=== PATIENT | female | born 1985 | race Caucasian/White ===

== ENCOUNTER → 2019-07-03 10:45 | Outpatient (CLI) | payer OTHER, SELFPAY ==
--- NOTE | ~2019-07-03 | US_ITS ---
EXAMINATION: US abdomen complete DATE: 07/03/2019 11:30 INDICATION: Generalized abdominal pain TECHNIQUE: Multiple grayscale and Doppler ultrasound images of the abdomen were obtained. COMPARISON: None available FINDINGS: The head, body, and tail of the pancreas are normal. The liver is normal with normal echog enicity and echotexture. No surface nodularity. Normal hepatopetal flow in the main portal vein. The gallbladder is normal with no abnormal wall thickening, pericholecystic fluid or stones. The normal c ommon bile duct measures 3 mm. There was no sonographic Zhang sign. The visualized portions of the a jennifer and inferior vena cava are normal. The right kidney measures 10.3 x 2.3 x 5.3 cm. The left kidney measures 9.7 x 4.4 x 3.6 cm. The kidne ys demonstrate normal parenchymal echogenicity. There is no hydronephrosis. The spleen measures 8.6 c m and demonstrates multiple echogenic foci, consistent with healed granulomatous disease of the splee n. IMPRESSION: 1. No sonographic correlate for the patient's symptoms. Reviewed, dictated and finalized at location A. MAN
== END ==
PROVIDERS: PCP Family Medicine; Visit Provider Family Medicine
DX: R10.12 Left upper quadrant pain (principal); R10.11 Right upper quadrant pain
CPT/HCPCS: 76700

== ENCOUNTER 2020-09-08 10:00 | Day surgery (SDC) | payer OTHER, SELFPAY ==
[2020-09-08] VITALS (11 sets, daily range): BP systolic 97–118; BP diastolic 49–76; PULSE 56–100; RESP 14–19; TEMP 36.7–37.2; O2SAT 100
--- NOTE | ~2020-09-08 | CT_ITS ---
EXAMINATION: CT abdomen pelvis w con EXAM DATE: 09/08/2020 12:23 INDICATION: RLQ pain. TECHNIQUE: Spiral CT of the abdomen and pelvis was performed following intravenous injection of 100 m L Omnipaque 350. Axial, coronal and sagittal images were reviewed. The dose-length product (DLP) fo r this examination was 171.28 mGy-cm. The exposure was tailored according to patient size (auto mA e xposure control), and iterative reconstruction (ASIR) was used as additional dose reduction technique . There is no prior study for comparison. FINDINGS: Probable identification of the retrocecal appendix, origin appears normal in caliber but th e tip is dilated up to about 7 mm, with adjacent inflammation, small amount of adjacent fluid but no organized abscess. Most likely acute tip appendicitis. Finding indicated on axial image 81. The liver, spleen, adrenal glands and pancreas are unremarkable. Gallbladder is unremarkable. No bi liary obstruction. Portal and splenic veins are patent. Kidneys enhance symmetrically. There is no hydronephrosis. There is IUD which appears to be centrally located within the endometrium, expecte d position. The bladder is unremarkable. There is no retroperitoneal or pelvic lymphadenopathy. The stomach and small bowel are unremarkable. There is expected amount of colonic stool. No free i ntraperitoneal gas. The heart is normal in size. There are no pericardial or pleural effusions. T he lung bases are unremarkable. There are no osteoblastic or osteolytic lesions identified. IMPRESSION: 1. Findings suspicious for acute tip appendicitis. Reviewed, dictated and finalized at location A.
[2020-09-08 10:18] LABS: Basophils Percent Auto 0.3 % (0.2-1.2); Eosinophils Absolute Auto 0.1 K/mm3 (0-0.3); Eosinophils Percent Auto 2.1 % (0-4.4); Hematocrit 42.5 % (37.0-47.0); Immature Granulocyte Absolute 0.01 K/mm3 (0.00-0.031); Immature Granulocyte Percent A 0.2 % (0-0.5); Lymphocytes Absolute Auto 2.42 K/mm3 (0.9-3.2); Lymphocytes Percent Auto 36.6 % (18.3-44.2); Mean Corpuscular HGB Conc 32.9 g/dl (32-36); Mean Corpuscular Hemoglobin 28.6 pg (26-34); Mean Corpuscular Volume 86.9 fl (80-100); Mean Platelet Volume 10.6 fl (7.4-10.4); Monocytes Absolute Auto 0.6 K/mm3 (0.1-0.6); Monocytes Percent Auto 9.1 % (2.6-8.5); Neutrophils Absolute Auto 3.4 K/mm3 (1.3-6.7); Neutrophils Percent Auto 51.7 % (45.5-73.1); Platelet Count Result 292 k/mm3 (150-375); Red Blood Count 4.89 M/mm3 (4.2-5.4); Red Cell Distribution Width 12.6 % (11.5-14.5); White Blood Count 6.6 K/mm3 (4.5-10.0)
[2020-09-08 10:30] LABS: Alanine Aminotransferase 18 U/L (4-35); Albumin Level 4.7 g/dL (3.5-5.1); Alkaline Phosphatase 67 U/L (38-126); Anion Gap 7 mmol/L (8-16); Aspartate Amino Transferase 33 U/L (14-36); Bilirubin,Total 0.6 mg/dL (0.2-1.3); Blood Urea Nitrogen 11 mg/dL (7-17); Carbon Dioxide 28 mmol/L (22-30); Chloride 105 mmol/L (98-107); Estimated CRCL calculation 79 ml/min; Estimated Glomerular Filt Rate > 60; Glucose 95 mg/dL (65-105); Lipase 73 U/L (23-300); Potassium 3.8 mmol/L (3.4-5.0); Sodium 140 mmol/L (137-145)
[2020-09-08 10:36] LABS: Add Urine Microscopic? YES; Appearance Urine Cloudy (Clear); Bacteria Urine Trace /hpf; Bilirubin Urine Negative (Negative); Blood Urine Negative (Negative); Color Urine Yellow (Yellow); Glucose Urine UA Negative (Negative); Ketones Urine Negative (Negative); Leukocyte Esterase Ur Negative LEU/UL (Negative); Mucus Urine Heavy /lpf; Nitrate Urine Negative (Negative); Protein Urine 2+ mg/dL (Negative); Specific Grav Ur 1.025 (1.001-1.035); Squamous Epithelial Cell Urine Few /hpf (Few); Urobilinogen Urine Negative mg/dL (<2.0); WBC Urine 0-3 /hpf
--- NOTE | 2020-09-08 12:31 | ED.ABDPAIN ---
HPI - Abdominal Pain General Chief Complaint: Abdominal Pain Stated Complaint: abd pain Time Seen by Provider: 09/08/20 11:30 History of Present Illness HPI narrative: Patient is a 34-year-old female who presents to the ER with abdominal pain. Ongoing for last 4 to 5 days. Began epigastrium is very uncomfortable. She tried taking some antacids for relief. She reports the pain has started moving down his right lower quadrant and she is concerned about appendicitis. She reports she is felt slightly constipated. No fevers or chills or sweats. No nausea or vomiting. Has not had similar issues in the past. Related Data Home Medications Medication Instructions Recorded Confirmed No Home Medications 09/08/20 09/08/20 Allergies Allergy/AdvReac Type Severity Reaction Status Date / Time latex Allergy Rash Verified 09/08/20 12:15 Review of Systems Review of Systems: All systems reviewed & are unremarkable except as noted in HPI and below Constitutional: Constitutional: Denies chills, Denies fever(s) and Denies weakness ENT: Denies nasal congestion and Denies sore throat Cardiovascular: Cardiovascular: Denies chest pain, Denies rapid heart rate and Denies radiating jaw, neck or arm pain Respiratory: Respiratory: Denies cough and Denies dyspnea Gastrointestinal: Gastrointestinal: Reports abdominal pain, Reports constipation, Denies nausea and Denies vomiting PMFSH Past Medical History Medical History (Updated 09/08/20 @ 13:49 by Kervin Pinto MD) Healthy female adult Surgical History Surgical History (Updated 09/08/20 @ 12:42 by Kervin Pinto MD) No history of previous surgery Social History Social History (Updated 09/08/20 @ 12:42 by Kervin Pinto MD) Smoking status: Never smoker Exam Narrative: Exam Narrative: GENERAL: Well-appearing, well-nourished, and in no acute distress. HEAD: Normocephalic, atraumatic. ENT: Mucous membranes moist. CHEST: Clear to auscultation. No respiratory distress. HEART: Regular rate and rhythm. Normal peripheral pulses. ABDOMEN: Soft, tender palpation right lower quadrant without guarding, nondistended. EXTREMITIES: Normal range of motion. No edema. SKIN: Warm, dry, no rash. NEURO: Alert and oriented x3. PSYCH: Normal mood and affect. Course Reevaluation(s) Reevaluation #1: Will contact general surgery about appendicitis. Patient had a small breakfast of a bar about an hour ago and has been sipping on some soda while in the ER. Date: 09/08/20 Time: 12:30 Reevaluation #2: Dr. Fernández will come and see the patient and discuss whether operative procedure versus outpatient antibiotics for best treatment course for her. Date: 09/08/20 Time: 12:45 Vital Signs Vital signs: Vital Signs Temperature 98.0 F 09/08/20 10:04 Pulse Rate 100 09/08/20 10:04 Respiratory Rate 18 09/08/20 10:04 Blood Pressure 114/74 09/08/20 10:04 Pulse Oximetry 100 09/08/20 10:04 Temperature 98.0 F 09/08/20 10:04 Pulse Rate 76 09/08/20 12:13 Respiratory Rate 18 09/08/20 12:13 Blood Pressure 103/68 09/08/20 12:13 Pulse Oximetry 100 09/08/20 12:13 MDM - Abdominal Pain Lab Data Result diagrams: 09/08/20 10:09 09/08/20 10:09 Labs: Lab Results 09/08/20 09/08/20 09/08/20 Range/Units 10:09 10:09 10:23 WBC 6.6 (4.5-10.0) K/mm3 RBC 4.89 (4.2-5.4) M/mm3 Hgb 14.0 (12.0-15.0) g/dL Hct 42.5 (37.0-47.0) % MCV 86.9 (80-100) fl MCH 28.6 (26-34) pg MCHC 32.9 (32-36) g/dl RDW 12.6 (11.5-14.5) % Plt Count 292 (150-375) k/mm3 MPV 10.6 H (7.4-10.4) fl Immature Gran % (Auto) 0.2 (0-0.5) % Neut % (Auto) 51.7 (45.5-73.1) % Lymph % (Auto) 36.6 (18.3-44.2) % [place] % (Auto) 9.1 H (2.6-8.5) % Eos % (Auto) 2.1 (0-4.4) % Baso % (Auto) 0.3 (0.2-1.2) % Lymph # (Auto) 2.42 (0.9-3.2) K/mm3 [place] # (Auto) 0.6 (0.1-0.6) K/mm3 Eos # (Auto) 0
[2020-09-08] MEDS: ERTAPENEM 1 GM/NS 50 ML 1 GM/50 ML BAG IVPB (12:41)
--- NOTE | 2020-09-08 12:45 | PC.NURSE ---
Pt states she ate a granola bar and drank approx a cup of soda around 1000
--- NOTE | 2020-09-08 14:25 | PM.IMHP ---
H&P: HPI History of Present Illness Date/Time: 09/08/20 14:25 Chief Complaint: Right lower quadrant pain Narrative: this is a 34-year-old woman who presented to the emergency department with abdominal pain that started 5 days ago. She states that this started out as vague abdominal pain but over the past couple days this has localized to the right lower quadrant. She did have a couple bowel movements that appeared to have blood mixed in with the stool, but this has happened before. She had a colonoscopy within the past year which she states was negative. She denies any fevers or any other abdominal complaints going along with this. She has never had any pain like this past. Review of Systems Review of Systems: All systems reviewed & are unremarkable except as noted in HPI and below Eyes: Eyes: Denies change in vision ENT: Denies hearing loss, Denies neck pain and Denies sore throat Cardiovascular: Cardiovascular: Denies chest pain and Denies dyspnea Respiratory: Respiratory: Denies cough, Denies dyspnea and Denies wheezing Gastrointestinal: Gastrointestinal: Reports as per HPI Genitourinary: Genitourinary: Denies hematuria and Denies dysuria Musculoskeletal: Musculoskeletal: Denies arthralgias, Denies joint swelling and Denies neck pain Allergic/Immunologic: Allergic/Immunologic: Denies wheezing PMFSH Past Medical History Medical History Healthy female adult Surgical History Surgical History No history of previous surgery Social History Social History Smoking status: Never smoker Meds Home Medications and Allergies Home Medications Medication Instructions Recorded Confirmed Type No Home Medications 09/08/20 09/08/20 History Allergies Allergy/AdvReac Type Severity Reaction Status Date / Time latex Allergy Rash Verified 09/08/20 12:15 Vital Signs Vital Signs - 24 hr 09/08/20 10:04 09/08/20 12:13 09/08/20 14:20 Temperature 36.7 C Pulse Rate 100 76 61 Respiratory Rate 18 18 18 Blood Pressure 114/74 103/68 110/76 Pulse Oximetry 100 100 100 Exam Const: General: alert; No acute distress Orientation/consciousness: patient oriented x3 Limitations: no limitations HENMT: Head: normocephalic and atraumatic Ears: hearing grossly normal bilaterally General nose exam: Normal external nose present and Normal nares present Mouth: Yes Normal oral and palatal mucosa present and Yes moist mucous membranes Eyes: General: appearance normal, both eyes and all related structures Conjunctivae: conjunctivae normal Sclera: sclerae normal Pupils: Equal, round and reactive pupils present EOM: EOMs intact bilaterally Neck: Neck: normal visual inspection, full ROM, no lymphadenopathy, supple and no JVD Lymphatic: no lymphadenopathy noted Chest: Chest palpation & inspection: normal inspection of the chest Resp: Effort & Inspection: normal respiratory effort and able to speak in complete sentences Auscultation: clear to auscultation bilaterally Percussion: percussion normal Cardio: Jugular venous distension: no JVD Rate: regular rate Rhythm: regular rhythm Heart sounds: S1 normal heart sound present and S2 normal heart sound present Peripheral pulses: Peripheral pulses 2+ throughout GI: Inspection: normal to inspection GI Palp: Yes abdominal tenderness, Yes Soft to palpation, Yes Tenderness to palpation present (GI) ( Right lower quadrant), No Guarding due to palpation present (GI), No Hernia present and No Rebound tenderness present Percussion: Yes normal to percussion Auscultation: normal bowel sounds : General: Yes no CVA tenderness Back/Spine/Pelvis: Back: no CVA tenderness Skin: General skin exam: normal color and dry skin Neuro: General: patient oriented x3, gait normal, moves all extremities, no focal christina
--- NOTE | 2020-09-08 14:30 | WPDHPUPDATE1 ---
History and Physical Update Update Date/Time: 09/08/20 14:30 History and Physical has been reviewed, including an updated exam of the patient. There are NO changes in the patient's condition. Risks, benefits, and alternatives have been discussed and questions answered. Patient agrees to proceed with procedure.
[2020-09-08] MEDS: LACTATED RINGERS 1,000 ML 30 ML IV CONT ×2 (15:04→17:05)
[2020-09-08] MEDS: KETOROLAC 15 MG/ML VIAL (*BKC) IV PUSH (15:24)
--- NOTE | 2020-09-08 15:31 | WPDANESEPPF ---
Anes - Initial Pre Proc Eval Procedure: Operation Date: 09/08/20 16:15 Proposed Procedures p Laparoscopic Appendectomy - John Fernández DO Date/Time: 09/08/20 15:31 Surgeon: John Fernández DO Pre Op Diagnosis: abd pain Patient Data Age: 34 Gender: F Height: 5 ft 4 in Weight: 50.8 kg Last Vital Signs Temp 37.2 C 09/08/20 14:25 Pulse 63 09/08/20 14:25 Resp 16 09/08/20 14:25 BP 97/61 L 09/08/20 14:25 Pulse Ox 100 09/08/20 14:25 Allergies Allergy/AdvReac Type Severity Reaction Status Date / Time latex Allergy Intermediate Rash Verified 09/08/20 14:53 gluten AdvReac Intermediate Gastrointestinal Verified 09/08/20 14:54 Upset codeine AdvReac Mild Nausea Verified 09/08/20 14:53 Home Medications Medication Instructions Recorded Confirmed Type No Home Medications 09/08/20 09/08/20 History Laboratory Tests 09/08/20 09/08/20 09/08/20 10:09 10:09 10:23 WBC 6.6 K/mm3 K/mm3 (4.5-10.0) RBC 4.89 M/mm3 M/mm3 (4.2-5.4) Hgb 14.0 g/dL g/dL (12.0-15.0) Hct 42.5 % % (37.0-47.0) MCV 86.9 fl fl (80-100) MCH 28.6 pg pg (26-34) MCHC 32.9 g/dl g/dl (32-36) RDW 12.6 % % (11.5-14.5) Plt Count 292 k/mm3 k/mm3 (150-375) MPV 10.6 fl H fl (7.4-10.4) Immature Gran % (Auto) 0.2 % % (0-0.5) Neut % (Auto) 51.7 % % (45.5-73.1) Lymph % (Auto) 36.6 % % (18.3-44.2) [place] % (Auto) 9.1 % H % (2.6-8.5) Eos % (Auto) 2.1 % % (0-4.4) Baso % (Auto) 0.3 % % (0.2-1.2) Lymph # (Auto) 2.42 K/mm3 K/mm3 (0.9-3.2) [place] # (Auto) 0.6 K/mm3 K/mm3 (0.1-0.6) Eos # (Auto) 0.1 K/mm3 K/mm3 (0-0.3) Baso # (Auto) 0.0 K/mm3 K/mm3 (0.0-0.1) Abs Immat Gran (auto) 0.01 K/mm3 K/mm3 (0.00-0.031) Absolute Neuts (auto) 3.4 K/mm3 K/mm3 (1.3-6.7) Absolute Nucleated RBC 0.0 K/mm3 K/mm3 (0.0-0.012) Nucleated RBC % 0.0 % % (0.0-0.2) Sodium 140 mmol/L mmol/L (137-145) Potassium 3.8 mmol/L mmol/L (3.4-5.0) Chloride 105 mmol/L mmol/L (98-107) Carbon Dioxide 28 mmol/L mmol/L (22-30) Anion Gap 7 mmol/L L mmol/L (8-16) BUN 11 mg/dL mg/dL (7-17) Creatinine 0.70 mg/dL mg/dL (0.7-1.0) Estim Creat Clear Calc 79 ml/min ml/min Estimated GFR > 60 (59 - ) Glucose 95 mg/dL mg/dL (65-105) Calcium 9.0 mg/dL mg/dL (8.4-10.2) Total Bilirubin 0.6 mg/dL mg/dL (0.2-1.3) AST 33 U/L U/L (14-36) ALT 18 U/L U/L (4-35) Alkaline Phosphatase 67 U/L U/L (38-126) Total Protein 8.0 g/dL g/dL (6.3-8.2) Albumin 4.7 g/dL g/dL (3.5-5.1) Lipase 73 U/L U/L (23-300) Urine Color Yellow (Yellow) Urine Appearance Cloudy H (Clear) Urine pH 5.0 (5.0-9.0) Ur Specific [place] 1.025 (1.001-1.035) Urine Protein 2+ mg/dL H mg/dL (Negative) Urine Glucose (UA) Negative mg/dL mg/dL (Negative) Urine Ketones Negative mg/dL mg/dL (Negative) Ur Blood (Man) Negative (Negative) Urine Nitrate Negative (Negative) Urine Bilirubin Negative (Negative) Urine Urobilinogen Negative mg/dL mg/dL (<2.0) Leukocyte Esterase Rfl Negative DIANA/UL DIANA/UL (Negative) Urine RBC 3-5 /hpf H /hpf (0-2) Urine WBC 0-3 /hpf /hpf Ur Squamous Epith Cells Few /hpf /hpf (Few) Urine Bacteria Trace /hpf /hpf Urine Mucus Heavy /lpf H /lpf Patient hx anesthesia problems: none Family hx anesthesia problems: none PMFSH Past Medical History Medical History (Updated 09/08/20 @ 15:35 by Bryan Mcclelland MD) Anxiety Healthy fema
[2020-09-08] MEDS: BUPIVACAINE/EPINEPHRINE 0.5% 30 ML VIAL INFILTRATE (16:37)
--- NOTE | 2020-09-08 17:09 | PM.PROC ---
Procedure Note - Detailed Date of procedure: 09/08/20 Pre-op diagnosis: Acute appendicitis Post-op diagnosis: same Procedure performed: Laparoscopic Appendectomy Description of procedure: Procedure as well as risks, benefits, and alternatives were explained to the patient. The patient agreed to proceed. Written consent was obtained and placed in chart prior to procedure. The patient was brought back to surgical suite. She was placed supine on operating table. Time-out was done to confirm the patient and procedure. The patient was then intubated by the Anesthesia Department. Her abdomen was prepped and draped in sterile fashion using chlorhexidine prep. A 12 mm incision was made at the inferior portion of the umbilicus. Blunt dissection was carried out down to the linea alba. The linea alba was then incised using a 15 blade scalpel. Then bluntly entered into the peritoneal cavity. A 12 mm trocar was then inserted, and carbon dioxide insufflation was used to create a pneumoperitoneum. The camera was inserted and the abdomen was inspected. No immediate abnormalities were identified. The patient was then placed in slight Trendelenburg position and rotated to the left. A 5 mm incision was made in the suprapubic region in midline and a 5 mm trocar was inserted under direct visualization. A 5 mm incision was made in the left lower quadrant and a 5 mm trocar was inserted under direct visualization. The right lower quadrant was carefully inspected. The cecum was identified and then this was traced back to the appendix. The appendix was identified and grasped at the mesoappendix and lifted anteriorly. Careful blunt dissection was carried out at the base of the appendix through the mesoappendix using a [place] grasper. An Endo-CLINT 45 mm blue load stapler was then advanced across the base of the appendix and clamped and fired. A white reload was then clamped across the mesoappendix and fired. This freed up our appendix completely. It was then placed in an EndoCatch bag and removed through the left lower quadrant port. The staple lines were then inspected. Hemostasis appeared adequate and the staple lines appeared secure. The area was then irrigated with sterile saline. The pelvis was then carefully inspected and irrigated with sterile saline as well and the remainder of the abdomen was carefully inspected. The patient was then flattened out in bed. One final inspection was made around the abdominal cavity and no other abnormalities were seen. The ports were then removed under direct visualization. The camera was removed and the pneumoperitoneum was released. The fascia of the umbilical incision was reapproximated using an 0 Vicryl [id number] suture. 0.5% bupivacaine with epinephrine was infiltrated locally around each of the incisions. The skin of the incisions was then approximated using 4-0 Monocryl subcuticular suture and Exofin glue was applied on top. The patient was then awakened from anesthesia, extubated, and transferred to Recovery. Anesthesia: GETA and local (0.5% bupivicaine with epi) Surgeon: John Fernández DO Estimated blood loss (mL): 5 Pathology: yes (Appendix) Complications: No immediate complications Condition: stable Disposition: same day Findings: This is a 34-year-old woman who presented with right lower quadrant pain for the past 5 days. Her pain was very dry oral and generalized across her lower abdomen for the 1st several days, but then it eventually localized to the right lower quadrant. She has never experienced symptoms like this before. CT in the emergency department showed evidence of early acute appendicitis and she had tenderness on palpation in the right lower quadrant. Discussions were made with the patient about treatment options and decision was made to proceed with laparoscopic appendectomy, possible open. Laparoscopic appendectomy was performed. The appendix was in a retrocecal location and at the dis
[2020-09-08] MEDS: ONDANSETRON INJ 4 MG/2 ML VIAL IV PUSH (17:26)
[2020-09-08] MEDS: fentaNYL CITRATE INJ (*CRX) 100 MCG/2 ML VIAL 25 MCG IV PUSH ×3 (17:26→17:45)
== END 2020-09-08 19:10 | disposition home or self-care (01) ==
LOC: ANHED 13:49 → ANHSURGERY 14:16
PROVIDERS: Emergency Provider Emergency Medicine; PCP Nurse Practitioner Family; Visit Provider Surgery
PROC: 0DTJ4ZZ Resection of Appendix, Percutaneous Endoscopic Approach (ICD-10-PCS; CPT 44970; principal; 2020-09-08 16:15)
DX: K35.890 Other acute appendicitis without perforation or gangrene (principal); K36 Other appendicitis; K38.2 Diverticulum of appendix; F41.9 Anxiety disorder, unspecified
CPT/HCPCS: 44970; 36415; 74177; 80053; 81001; 81025; 83690; 85025; 88304; 96365; 99285; J1100; J1335; J1885; J2250; J2405; J2704; J2710; J3010; J7030; J7120; Q9967

== ENCOUNTER → 2020-10-14 17:26 | Outpatient (CLI) | payer OTHER, SELFPAY ==
--- NOTE | ~2020-10-14 | US_ITS ---
EXAMINATION: US pelvic complete w TV EXAM DATE: 10/14/2020 18:03 INDICATION: RLQ abdominal pain, urinary frequency . TECHNIQUE: Pelvic transabdominal and transvaginal sonogram was performed. There are multiple graysca le and Doppler images available for interpretation. Comparison is made to prior examination from 2018. FINDINGS: Uterus measures 7.7 x 3.5 x 4.0 cm, with IUD centrally located inside the endometrial cavi ty. Endometrial stripe measures 3 mm, within normal limits. There is no free pelvic fluid. Right adnexa: The ovary measures 3.5 x 2.2 x 2.9 cm and is morphologically normal. Ovarian vascular f low confirmed. Left adnexa: The ovary measures 2.0 x 1.6 x 2.2 cm and is morphologically normal. Ovarian vascular fl ow confirmed. IMPRESSION: 1. Unremarkable pelvic ultrasound exam. Reviewed, dictated and finalized at location A.
== END ==
PROVIDERS: PCP Nurse Practitioner Family; Visit Provider Registered Nurse
DX: R10.31 Right lower quadrant pain (principal); R39.15 Urgency of urination; Z97.5 Presence of (intrauterine) contraceptive device
CPT/HCPCS: 76830; 76856

== ENCOUNTER 2020-12-11 14:00 | Emergency (ER) | payer OTHER, SELFPAY ==
--- NOTE | ~2020-12-11 | CT_ITS ---
EXAMINATION: CT abdomen pelvis w con DATE: 12/11/2020 17:18 INDICATION: Right lower quadrant abdominal pain. TECHNIQUE: Computed tomography (CT) of the abdomen and pelvis was performed with 100 mL Omnipaque 350 intravenous contrast. Automated exposure control and iterative reconstruction technique were employe d. The dose-length product was 171.39 mGy-cm. COMPARISON: CT abdomen and pelvis 09/08/2020 FINDINGS: The visualized portions of the lung bases are clear without pneumonia or pleural effusion. The heart size is normal. No pericardial effusion. There is mild pectus excavatum. The liver, gallbla dder, and pancreas are normal. Calcifications in the spleen are consistent with old granulomatous dis ease. The adrenal glands and kidneys are normal. There is an intrauterine device in expected position . There are no dilated loops of bowel. There are changes of appendectomy. There are no pathologically enlarged lymph nodes. There is trace physiologic fluid in the pelvis. The bones are unremarkable. IMPRESSION: 1. No etiology for the patient's symptoms. Reviewed, dictated and finalized at location A.
[2020-12-11 14:05] VITALS: BP 114/67; PULSE 77; RESP 16; TEMP 37; O2SAT 100
[2020-12-11 15:00] VITALS: BP 101/56; PULSE 72; RESP 16; TEMP 36.8; O2SAT 100
[2020-12-11 15:37] LABS: Basophils Percent Auto 0.4 % (0.2-1.2); Eosinophils Absolute Auto 0.1 K/mm3 (0-0.3); Hematocrit 40.7 % (37.0-47.0); Hemoglobin 13.1 g/dL (12.0-15.0); Immature Granulocyte Absolute 0.01 K/mm3 (0.00-0.031); Immature Granulocyte Percent A 0.1 % (0-0.5); Lymphocytes Absolute Auto 2.92 K/mm3 (0.9-3.2); Lymphocytes Percent Auto 40.4 % (18.3-44.2); Mean Corpuscular HGB Conc 32.2 g/dl (32-36); Mean Corpuscular Hemoglobin 28.1 pg (26-34); Mean Corpuscular Volume 87.2 fl (80-100); Monocytes Absolute Auto 0.6 K/mm3 (0.1-0.6); Monocytes Percent Auto 8.3 % (2.6-8.5); Neutrophils Absolute Auto 3.6 K/mm3 (1.3-6.7); Neutrophils Percent Auto 49.8 % (45.5-73.1); Platelet Count Result 295 k/mm3 (150-375); Red Blood Count 4.67 M/mm3 (4.2-5.4); Red Cell Distribution Width 12.5 % (11.5-14.5); White Blood Count 7.2 K/mm3 (4.5-10.0)
--- NOTE | 2020-12-11 15:43 | ED.ABDPAIN ---
HPI - Abdominal Pain General Chief Complaint: Abdominal Pain Stated Complaint: abd pain Time Seen by Provider: 12/11/20 15:26 Source: patient, RN notes reviewed and old records reviewed Mode of arrival: ambulatory Limitations: no limitations History of Present Illness HPI narrative: This is a 35 year old female who presents for evaluation of right side abdominal pain. She states she was diagnosed with acute appendicitis and she had an appendectomy performed 3 months ago. Since her appendectomy , she has been complaining of right side abdominal discomfort. This discomfort is present most of the time. She reports intermittent nausea and constipation since her procedure. She has small bowel movements daily. Her primary care provider has been evaluating patient for her symptoms . She has had a normal pelvic ultrasound and labs. She states today she developed epigastric abdominal discomfort that radiates to her back. She denies having the epigastric pain now. She reports her primary care provider wanted to her to come to ER to get CT scan to assess for obstruction. She has pain with eating but denies vomiting or fever. Related Data Allergies Allergy/AdvReac Type Severity Reaction Status Date / Time latex Allergy Intermediate Rash Verified 12/11/20 18:04 gluten AdvReac Intermediate Gastrointestinal Verified 12/11/20 18:04 Upset codeine AdvReac Mild Nausea Verified 12/11/20 18:04 Review of Systems Review of Systems: All systems reviewed & are unremarkable except as noted in HPI and below Constitutional: Constitutional: Denies chills and Denies fever(s) Respiratory: Respiratory: Denies dyspnea Gastrointestinal: Gastrointestinal: Reports abdominal pain, Reports constipation, Denies diarrhea, Reports nausea and Denies vomiting Musculoskeletal: Musculoskeletal: Reports back pain Neurologic: Reports headache(s) [facility] Past Medical History Medical History Anxiety Healthy female adult Surgical History Surgical History History of laparoscopic appendectomy Hx of tonsillectomy Social History Social History Smoking status: Never smoker Exam Const: General: no acute distress and alert Orientation/consciousness: patient oriented x3 Eyes: EOM: EOMs intact bilaterally Resp: Effort & Inspection: normal respiratory effort and no retractions Auscultation: clear to auscultation bilaterally Cardio: Rate: regular rate Rhythm: regular rhythm Heart sounds: no murmurs GI: GI Palp: Yes Soft to palpation, No Tenderness to palpation present (GI) and No Guarding due to palpation present (GI) Auscultation: normal bowel sounds Neuro: General: patient oriented x3, moves all extremities and CN's II-XI intact bilaterally Psych: Mental Status: mental status grossly normal Affect: normal affect Course Reevaluation(s) Reevaluation #1: Patient is laying in bed in no acute distress. I discussed with patient CT shows no cause of her symptoms. I recommended increased fiber and miralax for her constipation. I also recommended starting PPI for her epigastric pain as well as possible GI referral. Date: 12/11/20 Time: 17:52 Vital Signs Vital signs: Vital Signs Temperature 98.6 F 12/11/20 14:05 Pulse Rate 77 12/11/20 14:05 Respiratory Rate 16 12/11/20 14:05 Blood Pressure 114/67 12/11/20 14:05 Pulse Oximetry 100 12/11/20 14:05 Temperature 98.2 F 12/11/20 18:38 Pulse Rate 60 12/11/20 18:38 Respiratory Rate 20 12/11/20 18:38 Blood Pressure 100/58 L 12/11/20 18:38 Pulse Oximetry 100 12/11/20 18:38 MDM - Abdominal Pain Medical Records Attestation: I reviewed the patient's medical records. Lab Data Attestation: I reviewed the patient's lab results. Result diagrams: 12/11/20 14:12 12/11/20 14:12
[2020-12-11 15:47] LABS: Alanine Aminotransferase 14 U/L (4-35); Albumin Level 4.7 g/dL (3.5-5.1); Alkaline Phosphatase 74 U/L (38-126); Anion Gap 12 mmol/L (8-16); Aspartate Amino Transferase 28 U/L (14-36); Bilirubin,Total 0.5 mg/dL (0.2-1.3); Blood Urea Nitrogen 9 mg/dL (7-17); Calcium 9.4 mg/dL (8.4-10.2); Carbon Dioxide 26 mmol/L (22-30); Chloride 102 mmol/L (98-107); Estimated CRCL calculation 89 ml/min; Estimated Glomerular Filt Rate > 60; Glucose 84 mg/dL (65-105); Lipase 105 U/L (23-300); Potassium 3.6 mmol/L (3.4-5.0); Sodium 140 mmol/L (137-145)
[2020-12-11 16:00] VITALS: BP 105/69; PULSE 63; RESP 21; O2SAT 100
[2020-12-11 16:04] LABS: Add Urine Microscopic? YES; Appearance Urine Cloudy (Clear); Bilirubin Urine Negative (Negative); Blood Urine Negative (Negative); Color Urine Yellow (Yellow); Glucose Urine UA Negative (Negative); Ketones Urine Negative (Negative); Leukocyte Esterase Ur Negative LEU/UL (Negative); Mucus Urine Rare /lpf; Nitrate Urine Negative (Negative); Protein Urine Negative (Negative); Specific Grav Ur 1.021 (1.001-1.035); Squamous Epithelial Cell Urine Many /hpf (Few); Urobilinogen Urine Negative mg/dL (<2.0); WBC Urine 0-3 /hpf
[2020-12-11] MEDS: SODIUM CHLORIDE 0.9% IV 1,000 ML 999 ML IV CONT (17:40)
[2020-12-11] MEDS: ONDANSETRON INJ 4 MG/2 ML VIAL IV PUSH (17:41)
[2020-12-11] MEDS: PANTOPRAZOLE SODIUM IV 40 MG VIAL IV PUSH (17:41)
[2020-12-11 18:38] VITALS: BP 100/58; PULSE 60; RESP 20; TEMP 36.8; O2SAT 100
== END 2020-12-11 18:35 | disposition home or self-care (01) ==
PROVIDERS: Emergency Medicine; Emergency Provider General Practice; PCP Nurse Practitioner Family
DX: R10.9 Unspecified abdominal pain (principal)
CPT/HCPCS: 36415; 74177; 80053; 81001; 81025; 83690; 85025; 96365; 96375; 99284; C9113; J0131; J2405; J3010; J7030; Q9967

== ENCOUNTER 2022-08-03 10:47 | Outpatient (CLI) | payer BC, SELFPAY ==
--- NOTE | ~2022-08-03 | XR_ITS ---
XR abdomen/kub 1V 08/03/2022 11:01 INDICATION: Abdominal distention TECHNIQUE: KUB COMPARISON: None FINDINGS: Bowel gas pattern is normal. Moderate colonic fecal loading. There is an IUD in the pelvis. There is no evidence of free air, mass, organomegaly, ascites or obstruction. No abnormal calculi a re seen. The bones appear intact. IMPRESSION: 1: No acute abdominal abnormality identified. Reviewed, dictated and finalized at location L. RT OPERATOR
== END 2022-08-03 10:48 | disposition home or self-care (01) ==
LOC: ANHIMG 10:51
PROVIDERS: PCP Nurse Practitioner Family; Visit Provider Internal Medicine Gastroenterology
DX: R14.0 Abdominal distension (gaseous) (principal)
CPT/HCPCS: 74018

== ENCOUNTER 2023-10-05 13:39 | Outpatient (CLI) | payer BC, SELFPAY ==
[2023-10-05 14:02] LABS: Hematocrit 39.6 % (37.0-47.0); Mean Corpuscular HGB Conc 32.8 g/dl (32-36); Mean Corpuscular Hemoglobin 28.8 pg (26-34); Mean Corpuscular Volume 87.6 fl (80-100); Mean Platelet Volume 10.2 fl (7.4-10.4); Platelet Count Result 284 k/mm3 (150-375); Red Blood Count 4.52 M/mm3 (4.2-5.4); White Blood Count 7.1 K/mm3 (4.5-10.0)
[2023-10-05 14:15] LABS: Alanine Aminotransferase 23 U/L (6-35); Albumin Level 4.7 g/dL (3.5-5.1); Alkaline Phosphatase 61 U/L (38-126); Anion Gap 8 mmol/L (4-12); Aspartate Amino Transferase 30 U/L (14-36); Bilirubin,Total 0.5 mg/dL (0.2-1.3); Blood Urea Nitrogen 9 mg/dL (7-17); CRP < 0.5 mg/dL (<1.0); Calcium 9.5 mg/dL (8.4-10.2); Carbon Dioxide 25 mmol/L (22-30); Chloride 105 mmol/L (98-107); Estimated Glomerular Filt Rate > 60; Glucose 106 mg/dL (65-110); Potassium 3.6 mmol/L (3.4-5.0); Sodium 138 mmol/L (137-145)
[2023-10-05 15:13] LABS: Erythrocyte Sedimentation Rate 8 mm/hr (0-20)
== END 2023-10-05 13:40 | disposition home or self-care (01) ==
LOC: ANHLAB 13:41
PROVIDERS: PCP Nurse Practitioner Family; Visit Provider Nurse Practitioner Family
DX: R10.9 Unspecified abdominal pain (principal); K64.9 Unspecified hemorrhoids; K62.89 Other specified diseases of anus and rectum
CPT/HCPCS: 36415; 80053; 85027; 85652; 86140

== ENCOUNTER 2023-10-06 07:18 | Outpatient (CLI) | payer BC, SELFPAY ==
[2023-10-11 17:48] LABS: Calprotectin, Stool 6 mcg/g
== END 2023-10-06 07:19 | disposition home or self-care (01) ==
LOC: ANHLAB 07:19
PROVIDERS: PCP Nurse Practitioner Family; Visit Provider Nurse Practitioner Family
DX: R10.9 Unspecified abdominal pain (principal); K64.9 Unspecified hemorrhoids; K62.89 Other specified diseases of anus and rectum
CPT/HCPCS: 83993

== ENCOUNTER 2023-10-13 08:34 | Outpatient (CLI) | payer BC, SELFPAY ==
--- NOTE | ~2023-10-13 | CT_ITS ---
CT of the Abdomen and Pelvis: Indication: Left lower quadrant pain Technique: 2.5 mm axial scans were obtained through the abdomen and pelvis following intravenous adm inistration of 100 cc of Omnipaque 350. Dose reduction technique was used on this scan by utilizing a utomated exposure control and iterative reconstruction technique. The dose-length product (DLP) was 2 01.25 mGy-cm. COMPARISON: 12/11/2020 Findings: Scans through the lung bases demonstrate 5 mm right lower lobe pulmonary nodule peripheral ly.. The liver, spleen, pancreas, gallbladder, adrenals and kidneys are within normal limits. No evidence of aortic aneurysm. No lymphadenopathy. No bowel obstruction or bowel wall thickening. There is no evidence to suggest acute appendicitis. Images through the pelvis were performed. IUD in place. No adnexal mass seen. Urinary bladder unremar kable. No ascites. Impression: No acute abnormality. 5 mm right lower lobe pulmonary nodule. According to Fleischner Society criteria, for a low-risk derrick ent, no further follow-up required. For a high-risk patient, consider 12 month follow-up CT. Reviewed, dictated and finalized at [facility]. Impression: No acute abnormality. 5 mm right lower lobe pulmonary nodule. According to Fleischner Society criteri a, for a low-risk patient, no further follow-up required. For a high-risk patie nt, consider 12 month follow-up CT.
== END 2023-10-13 08:35 | disposition home or self-care (01) ==
PROVIDERS: PCP Nurse Practitioner Family; Visit Provider Nurse Practitioner Family
DX: K62.89 Other specified diseases of anus and rectum (principal); R91.1 Solitary pulmonary nodule; K64.9 Unspecified hemorrhoids
CPT/HCPCS: 74177; Q9967

== ENCOUNTER 2024-07-04 07:40 | Outpatient (CLI) | payer BC, SELFPAY ==
--- NOTE | ~2024-07-04 | MMUS_ITS ---
EXAMINATION: MM diagnostic gabriel BI w [place], US breast BI complete HISTORY: Palpable left breast lump TECHNIQUE: Additional 3-D tomosynthesis images of the breasts were performed and synthetic 2-D images were generated. CAD analysis was submitted and interpreted. High resolution complete bilateral breas t ultrasound was performed. COMPARISON: None BREAST PARENCHYMAL COMPOSITION: Dense: The breasts are extremely dense, which lowers the sensitivity of mammography. FINDINGS: MAMMOGRAPHIC FINDINGS: There are benign-appearing bilateral breast calcifications. There are no suspicious masses, calcifica tions or architectural distortion. ULTRASOUND: Complete US of all 4 quadrants of the breast/s and retroareolar region was reviewed. Right breast: Normal heterogeneous echotexture without focal solid or cystic mass. Left breast: There is a cluster of microcysts in the left breast at 2:00, 1 cm from the nipple in the area of palpable concern measuring up to 7 mm greatest dimension. At 6:00, 3 cm from the nipple ther e is an oval parallel oriented hypoechoic mass without internal vascularity or significant posterior features measuring 9 mm maximum dimension, likely benign. IMPRESSION: 1. Probable benign left breast masses including clustered microcysts in the area of palpable concern at 2:00, 1 cm from the nipple. 2. Recommend 6 month follow-up Limited left breast ultrasound BI-RADS category 3, probably benign findings. Reviewed, dictated and finalized at location A. INTERMEDIATE IMPRESSION: 1. Probable benign left breast masses including clustered microcysts in the are a of palpable concern at 2:00, 1 cm from the nipple. 2. Recommend 6 month follow-up Limited left breast ultrasound BI-RADS category 3, probably benign findings.
== END 2024-07-04 07:41 | disposition home or self-care (01) ==
PROVIDERS: PCP Nurse Practitioner Family; Visit Provider Nurse Practitioner
DX: N63.20 Unspecified lump in the left breast, unspecified quadrant (principal)
CPT/HCPCS: 76641; 77062; 77066; G0279

== ENCOUNTER 2024-12-05 08:24 | Outpatient (CLI) | payer BC, SELFPAY ==
--- NOTE | ~2024-12-05 | US_ITS ---
EXAMINATION TYPE: US breast LT limited COMPARISON: 07/04/2024 REASON FOR STUDY: Unspecified lump in the left breast, unspecified quadrant TECHNIQUE: Targeted sonographic evaluation of the left breast was performed. INTERPRETATION: Stable 5 mm cyst at the left breast 2:00 position, 1 cm from the nipple. Additional adjacent 4 mm cys t also present. IMPRESSION: Subcentimeter benign cysts at the 2:00 position left breast. BI-RADS CATEGORY: BI-RADS 2: Benign Reviewed, dictated and finalized at location .
== END 2024-12-05 08:25 | disposition home or self-care (01) ==
LOC: MICIMG 08:27
PROVIDERS: PCP Nurse Practitioner Family; Visit Provider Obstetrics & Gynecology Gynecology
DX: N60.12 Diffuse cystic mastopathy of left breast (principal)
CPT/HCPCS: 76642

== ENCOUNTER 2025-02-06 13:41 | Outpatient (CLI) | payer BC, SELFPAY ==
--- NOTE | ~2025-02-06 | CT_ITS ---
Exam: CT chest without contrast Clinical History: [Lung nodule ] Comparison: [ CT abdomen pelvis 10/13/2023] Technique: Multiple axial CT images of the chest without with IV contrast. Sagittal and coronal reformatted images were obtained. FINDINGS: Lungs and pleura: [ No pneumothorax. No pleural effusion. No focal pulmonary consolidation. No pulmonary mass. Mild biapical scarring. Stable 5 mm subpleural nodule in the right lower lobe.] Mediastinum and pulmonary lewis: [ No mass or adenopathy.] Axillary/intramammary and supraclavicular: [ No mass or adenopathy.] Heart and great vessels: [ Normal heart size.[ [ No pericardial effusion.] [ No aneurysm.] Chest Wall: [ Unremarkable.] Upper Abdomen: [ No significant findings.] Osseous structures: [ No acute fracture or destructive lesion.] [ Multilevel degenerative change in the visualized spine.] Additional findings: [ None of significance.] IMPRESSION: 1. Stable 5 mm pulmonary nodule in the right lower lobe. A follow-up chest CT in 6 months is recommended. Reviewed, dictated and finalized at location Q. IMPRESSION: 1. Stable 5 mm pulmonary nodule in the right lower lobe. A follow-up chest CT i n 6 months is recommended.
== END 2025-02-06 13:42 | disposition home or self-care (01) ==
LOC: MICIMG 13:42
PROVIDERS: PCP Nurse Practitioner Family; Visit Provider Nurse Practitioner Family
DX: R91.1 Solitary pulmonary nodule (principal)
CPT/HCPCS: 71250